=== PATIENT | female | born 1940 | race Caucasian/White ===

== ENCOUNTER → 2016-03-17 | Outpatient (CLI) | payer OTHER ==
[~2016-03-17] MED LIST: ADULT LOW DOSE81 MG PO; AMBIEN 5 MG TABL5 MG PO; BAYER CHEWABLE81 MG PO; CALCIUM; CIPROFLOXACIN500 M3 PO; CRESTOR10 MG PO; DIURETIC; FISH OIL 1,001000 MG PO; LOPRESSOR50 PO; MOTION RELIEF25 MG PO; NEURONTIN 300300 M1; NITROFURANTOIN100 MG; NORCO 5-325 TA1 EACH PO; PANTOPRAZOLE SO40 M1 PO; PLAVIX 75 MG TA75 MG PO; TRAMADOL 50 MG50 MG PO; TRIAMTERENE-HC1 EAC1 PO; VITAMIN D400 UNI1 PO; XANAX 0.5 MG0.5 MG PO; ZOLOFT 50 MG TA50 M1 PO
--- NOTE | ~2016-03-17 | CARDNUC ---
[facility] [address] [place] [address] CARDIAC NUCLEAR IMAGING REPORT Name: ALEKSANDRAELSANANCY ELDER Room #: REG CL Willy#: [id number] Admission: 03/17/16 Attend Phys: Mckinley Summers Discharge: Date of : 38 Date of Service: 03/18/16 0858 Report #: [id number] THIS REPORT FOR: //name// CC: Mckinley Marley DATE OF SERVICE: 03/17/2016 Vasodilator Gated SPECT Myocardial Perfusion Imaging: Regadenoson Attending physician: VERONICA Cali. Referring bankruptcy processor: Mckinley Link MD Date of study: 03/17/2016. Indications for study: Dyspnea on exertion. Risk factors: Hypertension, hyperlipidemia, age, and tobacco abuse. Cardiac history: None. Cardiac medications: Bystolic. Gender: Female. PROCEDURE: The patient was given 0.4 mg of intravenous regadenoson (Lexiscan) administered over approximately 20 seconds. The patient did not complain of chest discomfort during the infusion. At baseline the blood pressure was 130/70 and the pulse was 64; at completion of the regadenoson infusion the blood pressure was 138/50 and the pulse was 90. At completion of the recovery phase the blood pressure was 146/54 and the pulse was 77. The baseline EKG demonstrated normal sinus rhythm, nonspecific ST-T wave changes. The EKG at completion of the administration of regadenoson demonstrated no significant changes. No arrhythmias. Gated-SPECT myocardial perfusion imaging was performed using a one-day imaging protocol and a technetium isotope technique. The 10.2 mCi of Tc-99m sestamibi was administered intravenously at rest; 34.8 mCi of Tc-99m sestamibi was administered intravenously within 10 seconds of the completion of the administration of regadenoson. Imaging was obtained in the supine position and when feasible, adjunctive stress imaging in the prone position was obtained. FINDINGS: The overall quality of the study was . There was no evidence of attenuation artifact. There was no evidence of abnormal extracardiac uptake of the radionuclide. The baseline imaging study demonstrated scintigraphic evidence of inferior photopenia which was noted in both exercise and rest. The imaging obtained [address] [address] CARDIAC NUCLEAR IMAGING REPORT Name: ELSA LAKE Room #: [facility] [id number] Admission: 03/17/16 Attend Phys: Mckinley Summers Discharge: Date of : 38 Date of Service: 03/18/16 0858 Report #: [id number] following the administration of the vasodilator demonstrated no significant change. On gated analysis the left ventricle demonstrated normal contractility. The gated ejection fraction was 85%. The left ventricle was of normal size at rest and did not dilate with administration of the vasodilator. IMPRESSIONS: CLINICAL RESPONSE: Adequate response to intravenous Lexiscan. STRESS EKG RESPONSE: Inadequate heart rate for an ECG diagnosis. MYOCARDIAL PERFUSION STUDY: Scintigraphic evidence of an inferior wall region of photopenia without wall motion abnormalities, suggestive of attenuation artifact. FUNCTIONAL CAPACITY: Not assessed. CONCLUSIONS: Low risk study. <ELECTRONICALLY SIGNED> By: Mckinley Link MD 03/19/16 1154 0858 1253 Mckinley Link MD /nt
== END ==
LOC: NUC 12:05
DX: R06.09 Other forms of dyspnea (principal); I10 Essential (primary) hypertension; E78.5 Hyperlipidemia, unspecified; Z72.0 Tobacco use

== ENCOUNTER → 2016-08-09 | Outpatient (CLI) | payer OTHER ==
[~2016-08-09] VITALS: Ht 162.6 cm; Wt 54.9 kg
[~2016-08-09] MED LIST changes: +PROLIA60 MG/1 ML SQ
--- NOTE | ~2016-08-09 | HPC ---
[facility] [place] [address] PAIN MANAGEMENT CONSULTATION Name: ELSA LAKEN Room #: REG Eduardo Burkett#: [id number] Admission: 08/09/16 Attend Phys: Shankar Allred DO Discharge: Date of : 38 Report #: [id number] THIS REPORT FOR: //name// CC: Anabell Allred HISTORY OF PRESENT ILLNESS: The patient is a 75-year-old female seen in consultation 04/22/2016, diagnosed with symptomatic lumbar radiculopathy, given lumbar epidural injection at that time. The patient notes she had 40-50% relief following that injection. She failed to follow up with the clinic because her daughter who lives in [place] apparently had sustained some trauma, had a broken arm and she flew to [place] to help take care of her daughter and her children. She was there for several months. She notes that pain relief was good for some 4-6 weeks and gradually began to recur. She denies antecedent trauma and overuse. Notes pain is exacerbated climbing stairs. Pain in the low back, left lateral thigh to the foot. She also is developing some pain in the bilateral groin. PHYSICAL EXAMINATION: Shows a 75-year-old female, BMI is 20.8 kilograms per meter squared. Blood pressure is 121/89, pulse 68, respirations are 20. Rises from a chair using armrest. Gait is tandem. She does have little thoracic kyphosis. She has a bandage over the bridge of her nose. She recently had a Mohs procedure with a skin graft. Positive straight leg raise on the left with decreased plantar flexion strength bilaterally. DIAGNOSTIC STUDIES: Include the MRI of the lumbar spine from 01/29/2016 noting moderate right foraminal narrowing at L5-S1 with cranial displacement of the nerve root at this level, moderate left neural foraminal narrowing at L3-L4 and central disk narrowing at L3-L4 and L4-L5. ASSESSMENT: Symptomatic lumbar radiculopathy secondary to spinal stenosis with some 50% relief of pain for up to 6 weeks with gradual return of symptoms following epidural injection 04/22/2016. RECOMMENDATIONS: Repeat epidural injection under fluoroscopy today. Continue rare use of tramadol (she has prior discontinued use of gabapentin). Tentatively, we will make an appointment to see patient in 4 weeks. Cancel if doing well. PROCEDURE: Lumbar epidural injection under fluoroscopy. PROCEDURE NOTE: After both written and informed consent to include risk of spinal cord damage, increased pain, weakness and dural puncture, the patient was taken to the fluoroscopy suite, placed in the prone position. After sterile prep and drape, a skin wheal with lidocaine was raised. A 22-gauge epidural Tuohy needle was inserted in the midline at L5-S1 with good loss to resistance. [address] [address] PAIN MANAGEMENT CONSULTATION Name: ELSA LAKE Room #: REG CLEduardo Burkett#: [id number] Admission: 08/09/16 Attend Phys: Shankar Allred DO Discharge: Date of : 38 Report #: [id number] Negative aspiration for cerebrospinal fluid or blood was noted. Then 1 mL of Omnipaque under biplanar fluoroscopy showed good spread within the epidural space. This was followed with 80 mg of triamcinolone plus 1 mL of 1.5% preservative-free Xylocaine, 0.5 mL Xylocaine was then injected to flush the needle; it was removed. The patient was monitored for an appropriate period of time and discharged in good and stable condition. <ELECTRONICALLY SIGNED> By: Shankar Allred DO 08/11/16 1252 1219 1827 Shankar Allred DO /nt
[2016-08-09 10:26] VITALS: BP 121/89
== END | disposition home or self-care (01) ==
LOC: PAIN 05-13 13:18
DX: M48.06 Spinal stenosis, lumbar region (principal); Z79.82 Long term (current) use of aspirin; Z98.890 Other specified postprocedural states

== ENCOUNTER → 2017-09-28 | Outpatient (CLI) | payer OTHER | LOC: RAD 09:21 | DX: M25.571 Pain in right ankle and joints of right foot (principal); L53.8 Other specified erythematous conditions; R22.41 Localized swelling, mass and lump, right lower limb; M81.0 Age-related osteoporosis without current pathological fracture ==

== ENCOUNTER → 2018-03-29 | Outpatient (CLI) | payer OTHER | LOC: ULTRA 03-22 13:44 | DX: I10 Essential (primary) hypertension (principal); N28.9 Disorder of kidney and ureter, unspecified ==

== ENCOUNTER → 2018-07-19 | Outpatient (CLI) | payer OTHER | LOC: ULTRA 09:42 | DX: I65.23 Occlusion and stenosis of bilateral carotid arteries (principal); M79.601 Pain in right arm; R03.1 Nonspecific low blood-pressure reading ==

== ENCOUNTER → 2018-08-09 | Outpatient (CLI) | payer OTHER ==
[~2018-08-09] VITALS: Ht 165.1 cm; Wt 54.7 kg
[~2018-08-09] MED LIST changes: +BUSPIRONE HCL15 MG PO; +CELECOXIB100 MG PO; +MACROBID 100 M100 M1 PO; +SENNA PLUS TAB1 EACH PO; +TRAZODONE HCL100 MG PO; +ZOLOFT25 MG PO
[2018-08-09 09:51] VITALS: BP 136/65
--- NOTE | 2018-08-09 10:06 | NUR ---
Pain Clinic Assessment: 1. History of Osteoarthritis: KNEES BACK History of Rheumatoid Arthritis: Not Applicable 2. Height: 5 ft. 5 in. 165.1 cm. Weight: 120.6 lb. oz. 54.704 kg. Patient's BMI: 20.1 3. Vital Signs: BP: 136/65 Pulse: 61 Resp: 14 Temp: 02 Sat: 100 ECG Mon: 4. Pain Intensity: 8 5. Fall Risk: Dizziness: Y Needs help standing or walking: N Fallen in the last 3 months: N Fall risk comments: 6. Patient on Blood Thinner: None 7. History of Hypertension: Y 8. Opioid Therapy greater than 6 weeks: Y Opiate Contract Signed: 9. Risk Assessment Tool Provided: 10. Functional Assessment Tool: 11. Recreational Drug Use: Never Drug Type: Tobacco Use: Never Smoker Tobacco Type: Amount or Packs/day: How Many Years: Alcohol Use: No Frequency: Quant:
--- NOTE | 2018-08-16 12:16 | HPC ---
[facility] [address] [place] [address] PAIN MANAGEMENT CONSULTATION Name: ELSA LAKEN Room #: REG NUNOEduardo Burkett#: [id number] Admission: 08/09/18 ������������������ Attend Phys: Jose M Allred DO Discharge: ������������������ Date of : 38 Report #: [id number] THIS REPORT FOR: //name// CC: Jose M Allred Anabell MARTIN DATE OF SERVICE: 08/09/2018 CHIEF COMPLAINT: Low back pain, bilateral lower extremity pain with paresthesia, left greater than right. HISTORY OF PRESENT ILLNESS: As you know, the patient is a 77-year-old female with longstanding history of low back pain, bilateral lower extremity pain, left greater than right. She indicates pain is chronic in nature, describes the pain as constant, aching, numbness, tingling, sharp, shooting, radiating, weakness. She places pain today at 8/10. Walking stairs and standing tends to exacerbate symptoms. Rest, pain medications, epidural injections, sitting and lying down tends to improve pain. The patient was last seen in our clinic by my partner, Dr. Shankar Allred who had performed epidural injections on 04/22/2016 and again on 08/09/2016 with good efficacy. She returns today in followup visit reporting no new injuries, no new traumas, but recurrence of her lumbar radicular symptoms. She has been referred back to our clinic by her nurse practitioner to discuss the possibility of undergoing next in the series of epidural injections in hopes of improving pain. She reports good efficacy with previous injections. ALLERGIES: No known drug allergies. CURRENT MEDICATIONS: Senokot once a day, trazodone once a day, celecoxib once a day, sertraline once a day, buspirone twice a day, nitrofurantoin once a day, Prolia subcutaneous as directed, alprazolam 0.25 mg p.r.n., tramadol 50 mg 3 times a day, metoprolol twice a day, gabapentin twice a day, pantoprazole 40 mg once a day, omega-3 fish oil 1 tab per day, vitamin 1 tab per day, calcium carbonate 1 tab per day. SOCIAL HISTORY: The patient denies tobacco, alcohol, IV or illicit drug use. She is unaccompanied today. IMAGING: There appears to be no new imaging available. PQRS: The patient has known osteoarthritic changes of the lumbar spine, bilateral knees, no rheumatoid arthritis. She is placing pain intensity at 8/10. She is not a fall risk, has not had a fall in the last 3 months. She is not on blood thinners, but history of hypertension. She is on chronic opioids and has a low opioid addiction potential. Pain impact score 44/[address] [address] PAIN MANAGEMENT CONSULTATION Name: ELSA LAKE Room #: REG RENE Burkett#: [id number] Admission: 08/09/18 ������������������ Attend Phys: Jose M Allred DO Discharge: ������������������ Date of : 38 Report #: [id number] moderate to severe interference of daily activities secondary to pain. PHYSICAL EXAMINATION: VITAL SIGNS: Blood pressure 136/65, pulse 61, respiratory rate 14 and unlabored. The patient is 100% on room air, height 5 feet 5 inches tall, weight 120.6 pounds, BMI calculated 20.1. GENERAL: Well-developed, well-nourished, well-hydrated 77-year-old female appearing stated age, pain is rated around 8/10. HEENT: Head is normocephalic, atraumatic. Pupils equal, round, reactive to light. Extraocular muscles are intact. EXTREMITIES: Show no clubbing, no cyanosis, and no edema. MUSCULOSKELETAL: Lower extremity strength appears symmetrical 5/5. Slight giveaway strength noted with hip flexion and knee extension on the left when compared to the right. Seated straight leg raising negative. Supine straight leg raising positive, left. Gregg's test negative. Modified Gaenslen's positive for axial low back pain. Gait antalgic. ASSESSMENT: 1. Symptomatic lumbar radiculopathy. 2. Displacement of lumbar intervertebral disk with radiculopathy. 3. Lumbosacral spondylosis with radiculopathy. 4. Spinal stenosis of lumbar spine. 5. Neural foraminal stenosis of lumbar spine. 6. Facet arthropathy of the lumbar spine. 7. Lumbar degeneration. PLAN: 1. The patient returns today in followup visit requesting to undergo lumbar epidural injection under fluoroscopic guidance. The patient did very well with previous epidural injections in 2017, but has had a slow and progressive return of symptoms. She denies new injury, new trauma. She has been referred back to trial these injections. The patient has been advised risks and benefits of a lumbar epidural injection. These risks include but are not necessarily limited to bleeding, bruising, infection, worsening pain, no relief of pain, also risk of temporary or permanent muscle weakness, temporary or permanent nerve damage, possible paralysis, post-dural puncture headache and . The patient states understood and wished to proceed. 2. No medication changes were made at today's visit. The patient will continue current medical therapy as previously prescribed. 3. The patient will return to our clinic on an as needed basis for possible next in the series of lumbar epidural injections. PROCEDURE NOTE [address] [address] PAIN MANAGEMENT CONSULTATION Name: ELSA LAKE Room #: REG [facility] [id number] Admission: 08/09/18 ������������������ Attend Phys: Jose M Allred DO Discharge: ������������������ Date of : 38 Report #: [id number] DESCRIPTION OF PROCEDURE: L5-S1 left paramedian epidural steroid injection under fluoroscopic guidance. This is the first procedure of the second series that the patient is undergoing. After obtaining written consent, the patient was taken back to the fluoroscopy suite, placed in a prone position with pillow under the abdomen to decrease lumbar lordosis. The skin overlying the lumbosacral area was then prepped and draped in aseptic fashion. The [id number] interspace was then identified by AP fluoroscopy. The skin and subcutaneous tissue overlying the target site of injection was anesthetized with 3 mL 1% lidocaine. A 20-gauge 3-1/2 inch Tuohy needle was then advanced under fluoroscopic guidance towards the epidural space using a left paramedian approach. The epidural space was identified using loss of resistance to air technique. After negative aspiration for heme or cerebrospinal fluid, a total of 1 mL of Omnipaque was injected. A lumbar epidurogram was confirmed using both AP and lateral fluoroscopy. After negative aspiration for heme or cerebrospinal fluid, 5 mL of a solution containing 2 mL 40 mg per mL, 80 mg total triamcinolone, 3 mL lidocaine 1% was injected in increments. Contrast spread was noted posterior epidural space. The needle was then retracted approximately half way and needle tract flushed with 1 mL of 1% lidocaine. Needle was then removed. There were no apparent sensory or motor deficits in the lower extremity following the procedure. A sterile bandage was placed over the injection site. The heart rate, pulse, oximetry and blood pressure were continuously monitored after the procedure. There were no apparent complications. The patient tolerated the procedure well and was carefully escorted to the recovery room in stable condition. There were no apparent complications. After meeting discharge criteria, the patient was then discharged home. ��������������������������������������������� <ELECTRONICALLY SIGNED> ���������������������������������������� By: Jose M Allred DO ��������������������������������������������� 08/16/18 1216 1303 16 Jose M Allred DO /nt
== END | disposition home or self-care (01) ==
LOC: PAIN 06:46
DX: M51.16 Intervertebral disc disorders with radiculopathy, lumbar region (principal); M47.27 Other spondylosis with radiculopathy, lumbosacral region; M48.061 Spinal stenosis, lumbar region without neurogenic claudication; M47.26 Other spondylosis with radiculopathy, lumbar region; G89.29 Other chronic pain; I10 Essential (primary) hypertension; M17.0 Bilateral primary osteoarthritis of knee; Z79.899 Other long term (current) drug therapy; Z79.891 Long term (current) use of opiate analgesic; Z98.890 Other specified postprocedural states

== ENCOUNTER → 2018-10-11 | Outpatient (CLI) | payer OTHER ==
[~2018-10-11] VITALS: Ht 165.1 cm; Wt 53.3 kg
[2018-10-11 10:20] VITALS: BP 132/66
--- NOTE | 2018-10-11 10:33 | NUR ---
Pain Clinic Assessment: 1. History of Osteoarthritis: KNEES BACK History of Rheumatoid Arthritis: Not Applicable 2. Height: 5 ft. 5 in. 165.1 cm. Weight: 117.6 lb. oz. 53.343 kg. Patient's BMI: 19.6 3. Vital Signs: BP: 132/66 Pulse: 57 Resp: 14 Temp: 02 Sat: 100 ECG Mon: 4. Pain Intensity: 6-7 5. Fall Risk: Dizziness: N Needs help standing or walking: N Fallen in the last 3 months: N Fall risk comments: 6. Patient on Blood Thinner: None 7. History of Hypertension: Y 8. Opioid Therapy greater than 6 weeks: Y Opiate Contract Signed: 9. Risk Assessment Tool Provided: 10. Functional Assessment Tool: 11. Recreational Drug Use: Never Drug Type: Tobacco Use: Never Smoker Tobacco Type: Amount or Packs/day: How Many Years: Alcohol Use: No Frequency: Quant:
--- NOTE | 2018-10-17 09:09 | HPC ---
[facility] [place] [address] PAIN MANAGEMENT CONSULTATION Name: ELSA LAKEN Room #: REG NUNOEduardo Otero.#: [id number] Admission: 10/11/18 Attend Phys: Jose M Allred DO Discharge: Date of : 38 Report #: [id number] THIS REPORT FOR: //name// CC: Jose M Marley Anabell Donell MARTIN DATE OF SERVICE: 10/11/2018 CHIEF COMPLAINT: Low back pain, bilateral lower extremity pain with paresthesias, left greater than right. HISTORY OF PRESENT ILLNESS: As you know, the patient is a 77-year-old female with longstanding history of low back pain, bilateral lower extremity pain, left greater than right. She returns today in followup visit requesting to undergo a lumbar epidural injection under fluoroscopic guidance to address pain that is around level of 6-7/10. She reports previous procedure provided 70% improvement in overall pain lasting for nearly 2 months. Unfortunately, the patient has begun to experience slow and recurring symptoms. The patient indicates today she just completed ciprofloxacin therapy for a urinary tract infection, but was found to have a secondary infection and is now provided a new antibiotic, which she has yet to take and is having symptoms of urinary tract discomfort. She denies any new injury or trauma. She has been referred back to our clinic to discuss the possibility of undergoing next in the series of epidural injections. ALLERGIES: No known drug allergies. CURRENT MEDICATIONS: See chart. SOCIAL HISTORY: The patient denies tobacco, alcohol, IV or illicit drug use. She is unaccompanied at today's visit. IMAGING: There is no new imaging available. PQRS: The patient has known arthritic changes of the lumbar spine, bilateral knees, but reports no rheumatoid arthritis. She is placing pain intensity of 6-7/10. She is not a fall risk, has not had a fall in last 3 months. She is not on blood thinners. She is treated for hypertension. She is on chronic opioids, but has a low opioid addiction potential. Pain impact score today, 50/70. PHYSICAL EXAMINATION: VITAL SIGNS: Blood pressure 132/66, pulse 57, respiratory rate 14 and unlabored. The patient is 100% on room air. Height 5 feet 5 inches tall, weight 117.6 pounds, BMI calculated 19.6. GENERAL: Well-developed, well-nourished, well-hydrated, thin, 77-year-old [facility] [address] [place] [address] PAIN MANAGEMENT CONSULTATION Name: ELSA LAKE Room #: REG CLEduardo NaylorWilly#: [id number] Admission: 10/11/18 Attend Phys: Jose M Allred DO Discharge: Date of : 38 Report #: [id number] female appearing stated age, pain is rated today at 6-7/10. HEENT: Normocephalic, atraumatic. EXTREMITIES: Show no clubbing, no cyanosis, no edema. MUSCULOSKELETAL: Lower extremity strength is symmetrical again today, 5/5. Slight giveaway strength noted with hip flexion, knee extension on the left, mainly due to pain. Seated straight leg raising negative. Supine straight leg raising positive on the left. ASSESSMENT: 1. Symptomatic lumbar radiculopathy. 2. Displacement of lumbar intervertebral disk with radiculopathy. 3. Lumbosacral spondylosis with radiculopathy. 4. Spinal stenosis of the lumbar spine. 5. Neural foraminal stenosis of the lumbar spine. 6. Facet arthropathy of the lumbar spine. 7. Chronic intractable pain. PLAN: 1. The patient returns today in followup visit requesting to undergo a lumbar epidural injection. She provides the information that she has recently been treated for urinary tract infection with ciprofloxacin. It was found that after completing the ciprofloxacin medication that she had a secondary infection requiring changes in antibiotic therapy, which has yet to begun. We have advised the patient that steroid medications such as the triamcinolone in the epidural injection can reduce the potential of mounting an immune response secondary to the effects of steroid on the humoral system. This could lower the patient's potential to fight this infection and potentially generate a resistant bacterial infection that may require more aggressive treatment. We would recommend given this is an elective procedure that the patient delay the injection until which time she has completed the second antibiotic therapy to confirm that her immune response will be as optimized as possible. If the patient completes her antibiotic therapy and symptoms have resolved and there is no further treatment necessary that would be the time to provide this epidural injection. I do understand the patient has pain level of 6-7/10, but her safety, is paramount and we believe that exposing her to steroid at this time may cause a detrimental effect in regards to the patient's immune response. The patient is amenable and will delay the epidural injection. 2. We will make the patient a tentative appointment for next week, assuming her antibiotic therapy is initiated on time and she has resolution of symptoms before our followup visit. If the patient has continued symptoms or adjustments in antibiotic therapy, she is to cancel the appointment. 3. No medication changes made at today's visit. The patient will continue current medical therapy as previously prescribed. 4. We will see the patient back in followup visit once she has completed [facility] [address] [place] [address] PAIN MANAGEMENT CONSULTATION Name: ELSA LAKE Room #: REG CLI Branden.#: [id number] Admission: 10/11/18 Attend Phys: Jose M Allred DO Discharge: Date of : 38 Report #: [id number] antibiotic therapy and the symptoms of her urinary tract infection have been resolved. <ELECTRONICALLY SIGNED> By: Jose M Allred DO 10/17/18 0909 0802 2318 Jose M Allred DO /nt
== END ==
LOC: PAIN 09-19 06:59
DX: M51.16 Intervertebral disc disorders with radiculopathy, lumbar region (principal); M47.27 Other spondylosis with radiculopathy, lumbosacral region; M48.062 Spinal stenosis, lumbar region with neurogenic claudication; M12.88 Other specific arthropathies, not elsewhere classified, other specified site; G89.4 Chronic pain syndrome

== ENCOUNTER → 2019-04-09 | Outpatient (CLI) | payer OTHER | LOC: SJCVCIMAG 09:14 | DX: R93.1 Abnormal findings on diagnostic imaging of heart and coronary circulation (principal); I10 Essential (primary) hypertension; K21.9 Gastro-esophageal reflux disease without esophagitis; M06.9 Rheumatoid arthritis, unspecified; E78.5 Hyperlipidemia, unspecified; I73.9 Peripheral vascular disease, unspecified; I25.10 Atherosclerotic heart disease of native coronary artery without angina pectoris; Z90.89 Acquired absence of other organs; Z79.899 Other long term (current) drug therapy; Z87.891 Personal history of nicotine dependence; Z86.73 Personal history of transient ischemic attack (TIA), and cerebral infarction without residual deficits; Z86.718 Personal history of other venous thrombosis and embolism ==